=== PATIENT | female | born 1960 | race Caucasian/White ===

== ENCOUNTER 2022-07-27 17:23 | Observation (INO) | payer MEDICAID, SELFPAY ==
--- NOTE | 2022-07-19 11:54 | EKG12_ITS ---
Test Reason : PREOP Blood Pressure : / mmHG Vent. Rate : 074 BPM Atrial Rate : 074 BPM P-R Int : 166 ms QRS Dur : 076 ms QT Int : 362 ms P-R-T Axes : 049 026 031 degrees QTc Int : 401 ms Normal sinus rhythm Normal ECG Confirmed by HENRIQUE CARLISLE, RONI ([id number]), assistant editor EMORY MARSH ([id number]) on 07/20/2022 2:14:52 PM Referred By: Anil Gan Confirmed By:RONI DUENAS MD
[2022-07-19 11:56] LABS: Hematocrit 44.6 % (37-47); Hemoglobin 14.8 g/dL (12.0-15.0); Mean Corp Hgb Conc 33.2 g/dL (32-36); Mean Corpuscular Hgb 30.6 pg (27.0-32.0); Mean Corpuscular Volume 92.3 fL (81-99); Mean Platelet Vol. 10.6 fl (6.2-12.0); Platelet Count 200 K/mm3 (150-450); RBC Distribution Width CV 13.2 % (11.6-14.6); Red Blood Count 4.83 M/mm3 (4.2-5.4); White Blood Count 7.7 K/mm3 (4.4-11.0)
[2022-07-19 12:36] LABS: Anion Gap 5 (5-15); BUN 17 mg/dL (7-18); BUN/Creat Ratio 17.4 RATIO (10-20); Calcium,Total 9.2 mg/dL (8.5-10.1); Chloride 109 mmol/L (98-107); Creatinine, Serum 0.98 mg/dL (0.55-1.02); EST Glomerular Filtration Rate 61 mL/min (>60); Est Glom Filt Rate - Afr Amer 74 mL/min (>60); Glucose 122 mg/dL (74-106); Magnesium 2.2 mg/dL (1.6-2.6); Potassium 4.4 mmol/L (3.5-5.1); Sodium Level 140 mmol/L (136-145)
[2022-07-27] VITALS (9 sets, daily range): BP systolic 91–136; BP diastolic 34–101; PULSE 82–97; RESP 16–20; TEMP 36.3–37; O2SAT 93–100; BMI 47.7
[2022-07-27] MEDS: Lactated Ringers 1,000 ML 40 ML IV (05:05)
[2022-07-27] MEDS: Magnesium 1 GM over 15 mins IV (05:55)
[2022-07-27] MEDS: Scopolamine 1mg/72hr Patch 1 PATCH TD (06:08)
[2022-07-27] MEDS: Gabapentin 600 MG Tablet PO (06:08)
[2022-07-27] MEDS: Acetaminophen 500 MG Tablet 1000 MG PO ×2 (06:08→18:55)
[2022-07-27 06:12] LABS: Bedside Glucose 149 mg/dL (74-106)
--- NOTE | 2022-07-27 07:30 | BR_PTH ---
PATIENT: MERCEDES GREGORY LOC: MS3 U#:[id number] AGE/SX: 62/F ROOM: [facility] RE07/27/[address]: Dr. Anil Gan MD : 1960 BED: 1 DIS: 07/28/2022 SPEC #: [id number] RECD: 07/27/22 16:34 STATUS: DALE LUCIANO #: [id number] TONYA: 07/27/22 07:[address]: Anil Gan DEPT: SURGICAL PATHOLOGY RECD BY: Lisa Wen ENTERED: 07/28/22 09:09 SP TYPE: MAMOPLASTY OTHR DR: Dr. Mynor Abreu, DO Tissues: A - Right breast, NOS B - Left breast, NOS Procedures: Surgery Specimen Level IV HEADER OPERATION: ERAS, breast reduction mammoplasty PRE-OP DIAGNOSIS: Bilateral macromastia, neck pain, thoracic back pain, bilateral shoulder pain TISSUE SUBMITTED: A ? Right breast, B ? Left breast MICROSCOPIC DIAGNOSIS A. Right breast tissue, breast reduction mammoplasty: Benign breast tissue (2059 gm) with focal fibrocystic changes and focal mild chronic inflammation. B. Left breast tissue, breast reduction mammoplasty: Benign breast tissue (1965 gm). MAGALIS:tatum 07/29/2022 MICROSCOPIC DESCRIPTION Slides are reviewed. GROSS DESCRIPTION A - Received in fixative is one container labeled with the patient's name and designated right breast tissue. The specimen consists of multiple pieces of fibroadipose tissue with a few of the pieces showing rojas-white skin, weighing in aggregate 2059 gm and measuring in aggregate 30.0 x 25.0 x 10.0 cm. No skin lesion is identified. Sections reveal yellow adipose cut surfaces mixed with scant fibrous areas. No mass lesion is identified. Molding Utility Worker sections are submitted in six cassettes. Cassette 1 contains the skin piece. B - Received in fixative is one container labeled with the patient's name and designated left breast tissue. The specimen consists of multiple pieces of fibroadipose tissue with a few of the pieces showing rojas-white skin, weighing in aggregate 1965 gm and measuring in aggregate 30.0 x 28.0 x 10.0 cm. No skin lesion is identified. Sections reveal yellow adipose cut surfaces mixed with scant fibrous areas. No mass lesion is identified. Molding Utility Worker sections are submitted in six cassettes. Cassette 1 contains the skin piece. / MAGALIS:tatum 07/28/2022 TC:5 [facility]: [id number] x2
[2022-07-27] MEDS: Lactated Ringers 1,000 ML 60 ML IV (08:30)
[2022-07-27] MEDS: Lidocaine 1%/Epi 1:200 (30ml) 30 ML AMPUL (08:40)
[2022-07-27] MEDS: Cefazolin 2 GM in 0.9% Normal Saline 100 ML IV ×2 (12:37→21:00)
--- NOTE | 2022-07-27 17:11 | OP.PCM_ITS ---
Problems Associated Problem List Diagnoses (1) Macromastia: (2) Chronic neck pain: (3) Chronic thoracic back pain: (4) Shoulder pain, right: (5) Shoulder pain, left: (6) Intertrigo: (7) Family history of breast cancer: (8) Former smoker: Report of Operation Date of Procedure: 07/27/22 Pre-Operative Diagnosis: 1. Bilateral macromastia. 2. Neck pain. 3. Thoracic back pain. 4. Bilateral shoulder pain from shoulder grooving from the weight of the breasts on her bra straps. 5. Inframammary intertrigo. 6. Family history of breast cancer. 7. Former smoker. Post-Operative Diagnosis: Same. Surgery/Procedure Performed:: Bilateral breast reduction mammaplasty. Description of Surgical Findings:: 62 year old woman presents with complaints of bilateral macromastia as well as associated painful symptomatology of neck pain, thoracic back pain, bilateral shoulder pain from shoulder grooving from the weight of her breasts on her bra straps, and inframammary intertrigo for which she uses powders with minimal relief and without resolution of her symptomatology over the past 6 months. She denies any trauma to her breasts.? Denies any nipple discharge.? She has difficu lty with activities of daily living especially chores around the house because of her painful symptomatology.? Because of the weight of her breasts pushing on her chest wall, she gets winded easily when walking from the car into the house.? Her last mammogram was in November,. ? It showed the breast parenchyma is of scattered fibroglandular densities.? There are no new suspicious abnormal masses, aggressive calcifications or architectural distortion.? We received medical approval for the bilateral breast reduction mammaplasty.? It is scheduled for July 27, 2022.? Patient was informed of the risks and complications of the procedure including alternatives to surgery. These were discussed with the patient personally. Patient voices understanding and wishes to proceed. Some of the risks and complications were included in a form from the [employer]. Potential risks and complications included but not inclusive of bleeding, infection, seroma, hematoma, bruising, swelling, prolonged need for drains, loss of sensation to skin, partial or complete loss of skin flap and/or nipple, wound breakdown, need for wound care, poor scarring, poor aesthetic outcome, intra operative cardiac or neurologic events, DVT, PE, and reaction to anesthesia. IV Fluids - 3000 ml. Urine Output - 300 ml. Tissue removed from the left breast - 1852 grams. Tissue removed from the right breast - 1944 grams. I used AxioFill Placental Connective Tissue Powder, (I used 1000 mg x2, one in each breast). Catalog Number - [id number]-1000. Lot Number - [id number]. Expiration - March 30, 2027, (Left Breast). Catalog Number - [id number]-1000. Lot Number - [id number]. Expiration - November 27, 2026, (Right Breast). I used Charlee absorbable hemostat, (I used 4 vials, 2 in each breast). Reference Number - [id number]. Lot Number - [id number]. Expiration - January 24, 2027, (I used 2 vials in Left Breast and one vial in Right Breast). Reference Number - [id number]. Lot Number - [id number]. Expiration - January 24, 2027, (Right Breast). Surgeon: Anil Gan MD public services librarian: Chava Bhatia RNFA Type of Anesthesia: General Anesthesiologist: Percy Patel MD and Eveline Miller CRNA Specimen's removed: 1. Left breast tissue to Pathology. 2. Right breast tissue to Pathology. Drains: Nick x2 (one in each breast). Estimated Blood Loss (mL): 350. Fluids Replaced: 3300 ml (IV Fluids 3000 ml, Urine Output 300 ml). Description of Procedure: In the preop area, the patient was placed in the sitting position and preoperative markings were made.? The sternum midline was marked down to the umbilicus.? The inframammary folds were marked bilaterally.? The midclavicular line was then marked down to the nipple, then from the nipple to the inframammary fold.? The inframammary fold was then superimposed on the midclavicular line and I made a point 1 cm below that to be the new position of the nipple-areolar complex.? 7 cm lines were then drawn divergent from that point to encompass the nipple-areolar complex.? The distance between the divergent lines was 10 cm.? The patient was then placed in the supine position and taken to the operating room and placed under general anesthesia and her breasts were prepped and draped in usual fashion.? Ioban draping was also used.? SCDs were placed for DVT prophylaxis.? Perioperative antibiotics were given intravenously.? A Welch catheter was also placed. ? I then yoselin straight lines down from the lines drawn divergent around the nipple-areolar complex down to the inframammary fold.? The width of the pedicle is 10 cm.? I then used a 45 mm circular template for a new size of the nipple-areolar complex.? The central markings were infiltrated with Xylocaine and epinephrine.? The central skin was then deepithelialized.? I started on the left side first and then went to the right side.? I then mobilized medial and lateral breast flaps at the level of Negrita's fascia down to about 1-2 cm from the chest wall.? This was met in the midline of the breast with dissection at the level of Negrita's fascia down to about 1-2 cm from the chest wall.? Once the central breast mound pedicle was from the skin envelope, the reduction was then begun.? Most of the tissue was removed from the superior aspect of the breast and the lateral aspect of the breast.? I then sutured the leading edge of the medial and lateral breast flaps to the midline of the inframammary fold with 2-0 Vicryl suture.? The vertical incision was approximated using surgical clips.? The excess tissue from the medial and lateral breast flaps were excised and the horizontal incision was approximated using surgical clips.? The patient was then placed in a sitting position.? Using a vertical limb length of 5 cm, I yoselin the new position of the new nipple-areolar complexes on both breasts.? They were in good position on the central aspect of the breast mound.? Good symmetry was noted between the left breast and the right breast.? Good shape and contour and projection were noted and appeared clinically to be a C cup.? The patient was then placed back in the supine position and the surgical clips were removed.? The breast wounds were then irrigated with Irrisept 0.05% Chlorhexidine solution which was followed by saline irrigation.? Hemostasis was obtained using electrocautery.? The tissue removed from the left breast was 1852 grams grams.? The tissue removed from the right breast was 1944 grams.? The tissue that was removed from the breasts was sent to Pathology for analysis to rule out carcinoma. ? After hemostasis was obtained using electrocautery, I then sprayed Charlee absorbable hemostat into both breast wounds.? I used two vials for each side.? I then placed a size 15 Nick drain into each breast wound to be brought through the lateral aspect of the horizontal incision.? I then closed the breast wounds by first approximating the leading edge of the medial and lateral breast flaps to the midline of the inframammary fold with 2-0 Vicryl suture.? I then placed AxioFill placental connective tissue powder into both wounds at the level of the Tzone to help with the healing process. I used 1000 mg in each breast. ? The deep dermis and subcutaneous tissue of the vertical incision and the horizontal incisions were approximated using 3-0 Monocryl interrupted sutures.? ? The horizontal incision was then approximated using 4-0 V-Loc unidirectional barbed running subcuticular suture.? I also placed a few 4-0 Prolene vertical mattress interrupted sutures at the level of the Tzone.? The vertical incision was then closed on the skin with 4-0 Prolene interrupted sutures.? With a vertical limb length of 5 cm, I yoselin a circular incision where the nipple-areolar complex would be brought through this keyhole incision.? Incisions were made and the nipple areolar co mplex was brought through the keyhole incision.? The nipple-areolar complex was secured to the breast skin using 3-0 Monocryl interrupted sutures for deep dermis and subcutaneous tissue.? The skin was approximated using 4-0 Prolene simple interrupted sutures.? This was then covered with Histoacryl skin tissue adhesive.? I sutured the drains to the skin using 3-0 nylon pursestring suture.? At the end of the procedure, the breasts were soft with no evidence of vascular compromise.? No evidence of hematomas were noted.? The nipples were viable.? I then dressed the breasts with a Kerlix gauze and a compression surgical bra.? Then patient tolerated the procedure well and will be sent to the recovery room in satisfactory condition.? She will be admitted for surgical observation overnight stay.? She will go home tomorrow once she is tolerating oral pain medication.? I will remove the drains in a few days.? She will keep her head elevated during the initial postoperative period.? She will be maintained on a lifting restriction and keep her head elevated during the initial postoperative period.? The operative blood loss was about 350 ml.? Post-discharge, she may get a compression sports bra as well.? She will have the Welch removed in the morning.? She will be sent home on antibiotics and pain medicine.? Sutures will be removed in 1-2 weeks. Grafts/Implants Used: AxioFill placental connective tissue powder 1000mg x2, Charlee Procedure Start Time: 08:40 Procedure Stop Time: 16:25 Complications None. Admit VTE Documentation VTE Present on Admission: No VTE Mechan Device Prophylaxis: SCD's VTE Pharm Prophylaxis ordered?: Yes Addendum Addendum: Surgery Charges CPT - 73278-70 ICD-10 - N62, M54.2, M54.6, M25.511, M25.512, L30.4, Z80.3, Z87.891 17980 N62, M54.2, M54.6, M25.511, M25.512, L30.4, Z80.3, Z87.891
[2022-07-27] MEDS: Glycerin/Hypromellose/PEG400 15 ml Bottle 2 DRP EACH EYE ×2 (17:29→20:57)
[2022-07-27 18:14] LABS: Bedside Glucose 169 mg/dL (74-106)
[2022-07-27] MEDS: Enoxaparin 40 MG/0.4 ML Syringe SC (20:53)
[2022-07-27] MEDS: Docusate Sodium 100 MG Capsule PO (20:54)
[2022-07-27] MEDS: Atorvastatin Calcium 20 MG Tablet PO (20:55)
[2022-07-28] VITALS (9 sets, daily range): BP systolic 91–111; BP diastolic 50–62; PULSE 86–98; RESP 16–20; TEMP 36.7–37.3; O2SAT 87–98
[2022-07-28] MEDS: Acetaminophen 500 MG Tablet 1000 MG PO ×3 (00:51→11:02)
[2022-07-28] MEDS: Lactated Ringers 1,000 ML 60 ML IV (00:52)
[2022-07-28] MEDS: Cefazolin 2 GM in 0.9% Normal Saline 100 ML IV (05:35)
[2022-07-28 05:41] LABS: Hematocrit 30.7 % (37-47); Hemoglobin 10.1 g/dL (12.0-15.0); Mean Corp Hgb Conc 32.9 g/dL (32-36); Mean Corpuscular Hgb 31.1 pg (27.0-32.0); Mean Corpuscular Volume 94.5 fL (81-99); Mean Platelet Vol. 11.1 fl (6.2-12.0); Platelet Count 170 K/mm3 (150-450); RBC Distribution Width CV 13.5 % (11.6-14.6); RBC Distribution Width SD 46.5 fl (35.1-43.9); Red Blood Count 3.25 M/mm3 (4.2-5.4); White Blood Count 10.4 K/mm3 (4.4-11.0)
[2022-07-28 06:07] LABS: Anion Gap 7 (5-15); BUN 20 mg/dL (7-18); Calcium,Total 7.6 mg/dL (8.5-10.1); Chloride 107 mmol/L (98-107); Creatinine, Serum 0.87 mg/dL (0.55-1.02); EST Glomerular Filtration Rate 71 mL/min (>60); Est Glom Filt Rate - Afr Amer 85 mL/min (>60); Estimated Creatinine Clearance 58.64 ml/min; Glucose 125 mg/dL (74-106); Potassium 4.4 mmol/L (3.5-5.1); Prealbumin 17.2 mg/dL (20.0-40.0); Sodium Level 139 mmol/L (136-145)
[2022-07-28] MEDS: Calcium (Elemental) 500 MG Tablet PO (07:45)
[2022-07-28] MEDS: Spironolactone 25 MG Tablet PO (07:45)
[2022-07-28] MEDS: Multivitamins,Therapeutic Tablet 1 TABLET PO (07:45)
[2022-07-28] MEDS: Gabapentin 100 MG Capsule 200 MG PO ×2 (07:48→11:02)
[2022-07-28] MEDS: Ensure Surgery 237 ML LIQUID PO (07:48)
[2022-07-28] MEDS: Enoxaparin 40 MG/0.4 ML Syringe SC (10:58)
[2022-07-28] MEDS: Metoprolol Tartrate 50 MG Tablet PO (10:58)
[2022-07-28] MEDS: Docusate Sodium 100 MG Capsule PO (10:58)
[2022-07-28] MEDS: Pantoprazole Sodium 20 MG Tablet PO (10:58)
--- NOTE | 2022-07-28 11:26 | CASEMGMT ---
PITA CM into pt room to discuss dc planning. Pt states she feels that once she has education by the nurse, she will feel comfortable with her drains. Pt states her dtr is a TERMINAL OPERATOR who will be coming to her home daily to check on her. She states she lives with her who is also able to help her as needed. Pt denies having any oxygen in the home, states she has a CPAP. Pt denies any homegoing dc needs.
--- NOTE | 2022-07-28 13:35 | PCM.DC ---
Discharge Instructions Diet Discharge Diet: No restrictions Activity Discharge Activity: May Not Shower Lifting Restrictions: 20 lb weight lifting restriction Additional Activity Instructions:: Keep head elevated to help with swelling. Sleep with head elevated (either in a recliner or on a couple extra pillows) Dressing / Incision Call your doctor if your incision/area has: Continuous Slow Oozing, Sudden Increased Bleeding, Increased Pain/ Swelling, Increased Redness and Foul Smelling Discharge Call your doctor if you observe: Fever of 101 or Higher, Inability to urinate, Inability to have a bowel movement, Shortness of breath, Chest pain, Calf discomfort and Uncontrolled pain Change Dressing in: do not change dressing (unless it becomes saturated) Drain: Suction Additional Dressing/Incision Instructions:: Keep a log with drainage amounts and bring to your follow up appointment Follow Up Care Please Follow Up With: Anil Gan MD When: Wednesday, August 03, 2022. If you have any issues with this time please call our office at [phone] Test Results: Test results from this visit will be discussed in further detail at your follow-up appointment, if applicable. Discharge Plan Admission Admit Date/Time: 07/27/22 17:23 Attending Provider: Anil Gan Primary Care Provider: Mynor Abreu Discharge Orders/Prescriptions Prescriptions: New cefadroxil 500 mg capsule 500 mg PO BID 7 Days Qty: 14 0RF L.acidoph,saliva-B.bif-S.therm [Acidophilus Probiotic Blend] 175 mg capsule 1 cap PO DAILY 10 Days Qty: 10 0RF oxycodone-acetaminophen [Percocet] 5-325 mg tablet 1 tab PO 4X/DAY PRN PRN (Reason: pain (scale score 7-10)) 7 Days Qty: 28 0RF docusate sodium [Colace] 100 mg capsule 100 mg PO DAILY 30 Days Qty: 30 0RF Continued omeprazole 20 mg capsule,delayed release(DR/EC) 20 mg PO DAILY metoprolol tartrate 50 mg tablet 50 mg PO DAILY aspirin [Adult Aspirin Regimen] 81 mg tablet,delayed release (DR/EC) 81 mg PO DAILY multivitamin [Daily Multi-Vitamin] Tablet 1 tab PO DAILY calcium carbonate [Calcium 600] 600 mg calcium (1,500 mg) tablet 600 mg PO BID atorvastatin 20 mg tablet 20 mg PO BID spironolactone 25 mg tablet 25 mg PO DAILY diphenhydramine HCl [Benadryl Allergy] 25 mg tablet 25 mg PO Q6H PRN (Reason: ALLERGIES) diazepam [Valium] 5 mg tablet 5 mg PO QHS PRN (Reason: sleep) Qty: 3 0RF Rx Instructions: 3 tabs (three) Take the medication starting next week, 3 days prior to surgery on 07/27/22 Otezla 30 mg tablet 30 mg PO BID Other Ambulatory Orders: 12 Lead EKG (Routine) Timeframe: [id number] Location: None Selected Ordered By: Dr. Osmar Goodwin Referrals / Follow Up: Mynor Abreu DO [Primary Care Provider] - Disposition Disposition (needs filled in before D/C Order can be placed): Home, Self Care
--- NOTE | 2022-07-28 13:40 | PCM.PN.SRG ---
Subjective Subjective Postop #1 Patient sitting up in bed. Patient states pain is well controlled. She is denying any back or neck pain at this time. Objective Data Objective Data Vital Signs: Vital Signs Temp Pulse Resp BP Pulse Ox O2 Del Method O2 Flow Rate 99.1 F 98 18 109/61 98 Room Air 2 07/28/22 11:14 07/28/22 11:14 07/28/22 11:14 07/28/22 11:14 07/28/22 11:14 07/28/22 11:14 07/28/22 02:22 FiO2 95 07/28/22 08:06 Oxygen Flow Rate (L/min) 2 Oxygen Delivery Method Room Air Weight: 278 lb 3.2 oz Body Mass Index (BMI) 47.7 Intake & Output: Intake and Output for Last 24 Hours 07/26/22 07/27/22 07/28/22 23:59 23:59 23:59 Intake Total 3437 / 5437 5476 / 5476 Output Total 685 / 1055 2520 / 2520 Balance 2752 / 4382 2956 / 2956 Nick drain #1 - 95 ml , #2 - 150 ml Lab / Micro Data Result Diagrams: 07/28/22 05:25 07/28/22 05:25 Labs: Laboratory Results - last 24 hr 07/27/22 17:53: POC Glucose 169 H 07/28/22 05:25: WBC 10.4, RBC 3.25 L, Hgb 10.1 L, Hct 30.7 L, MCV 94.5, MCH 31.1, MCHC 32.9, RDW Std Deviation 46.5 H, RDW Coeff of Conner 13.5, Plt Count 170, MPV 11.1 07/28/22 05:25: Sodium 139, Potassium 4.4, Chloride 107, Carbon Dioxide 25.0, Anion Gap 7, BUN 20 H, Creatinine 0.87, Estim Creat Clear Calc 58.64, Est GFR (MDRD) Af Amer 85, Est GFR (MDRD) Non-Af 71, BUN/Creatinine Ratio 23.0 H, Glucose 125 H, Calcium 7.6 L, Prealbumin 17.2 L Physical Exam Const alert and oriented x3 General Appearance: cooperative HEENT normocephalic Resp normal respiratory effort Effort and Inspection: able to speak in complete sentences Skin Skin Narrative: Operative dressing removed. Incision and sutures are dry and intact. She has some bruising present on her left breast. Nipples are viable. Nick drains in place draining serosanguineous drainage. Neuro oriented x3 Psych mental status grossly normal and thought process normal Assessment & Plan Assessment/Plan (1) Macromastia: (2) Chronic neck pain: (3) Chronic thoracic back pain: (4) Shoulder pain, right: (5) Shoulder pain, left: (6) Intertrigo: (7) Other acute postprocedural pain: (8) Former smoker: PLAN: Plan Patient is doing well. She states she is having minimal pain. Operative dressing removed, incisions are dry and intact. Nipples are viable. Nick drains draining serosanguineous drainage. #1 had 95 ml, #2 had 150 ml drainage. She will measure and keep track of drainage from her Nick tubes and bring it to her appointment next week. Hgb 10.1, K+ 4.4. Prealbumin 17.2. Encourage increase in protein intake to help with wound healing. Instructed to keep head elevated to help reduce swelling. She has a 20 lb weight lifting restriction. She only needs to change the dressing if she is having a lot of drainage. She is to take the Cefadroxil until the drains are removed. Percocet 5 mg prescribed 4 x/day as needed for pain (28 tabs). PDMP reviewed. She is to follow up next Monday, August 02, 2022 for her follow up appointment. Will plan on removing her drains at that time.
== END 2022-07-28 15:40 | disposition home or self-care (01) ==
LOC: SDC 18:06 → MS3 18:06
PROVIDERS: Anesthesiology; Admitting Provider Surgery; Referring Provider Surgery; Visit Provider Surgery
PROC: 0H0U0ZZ Alteration of Left Breast, Open Approach (ICD-10-PCS; CPT 19318; principal; 2022-07-27 07:15)
DX: N62 Hypertrophy of breast (principal); Z79.899 Other long term (current) drug therapy; Z79.82 Long term (current) use of aspirin; M19.90 Unspecified osteoarthritis, unspecified site; K21.9 Gastro-esophageal reflux disease without esophagitis; I10 Essential (primary) hypertension; E78.00 Pure hypercholesterolemia, unspecified; Z87.891 Personal history of nicotine dependence; M54.2 Cervicalgia; M25.511 Pain in right shoulder; M25.512 Pain in left shoulder; M54.6 Pain in thoracic spine; L30.4 Erythema intertrigo; Z80.3 Family history of malignant neoplasm of breast
CPT/HCPCS: 19318; 00402; Q9968; 36415; 80048; 82962; 83735; 84134; 85027; 88305; 93005; 94668; 94762; 96365; 96366; 96372; 99221; 99252; J7120; G0378; G0463; J2405; J3475

== ENCOUNTER → 2022-09-01 | Outpatient (CLI) | payer MEDICAID, SELFPAY | END | disposition home or self-care (01) | LOC: LABSPEC 12:06 | PROVIDERS: Referring Provider Nurse Practitioner Family; Visit Provider Nurse Practitioner Family | DX: T81.89XA Other complications of procedures, not elsewhere classified, initial encounter (principal) | CPT/HCPCS: 87070; 87075; 87186; 87205 ==

== ENCOUNTER → 2022-11-03 | Outpatient (CLI) | payer MEDICAID, SELFPAY | END | disposition home or self-care (01) | LOC: LABSPEC 10:34 | PROVIDERS: Referring Provider Nurse Practitioner Family; Visit Provider Nurse Practitioner Family | DX: L98.499 Non-pressure chronic ulcer of skin of other sites with unspecified severity (principal); Z80.3 Family history of malignant neoplasm of breast; Z87.891 Personal history of nicotine dependence; Z98.890 Other specified postprocedural states | CPT/HCPCS: 87070; 87075; 87205 ==

== ENCOUNTER 2023-07-26 07:22 | Day surgery (SDC) | payer MEDICAID, SELFPAY ==
[2023-07-26] VITALS (12 sets, daily range): BP systolic 101–117; BP diastolic 63–79; PULSE 64–70; RESP 16–18; TEMP 36–36.6; O2SAT 94–99; BMI 43.7
[2023-07-26 08:17] LABS: Magnesium 1.9 mg/dL (1.6-2.6)
[2023-07-26] MEDS: Lactated Ringers 1,000 ML 40 ML IV (08:22)
[2023-07-26] MEDS: Gabapentin 600 MG Tablet PO (08:27)
[2023-07-26] MEDS: Acetaminophen 500 MG Tablet 1000 MG PO (08:27)
[2023-07-26] MEDS: Scopolamine 1mg/72hr Patch 1 PATCH TD (08:28)
--- NOTE | 2023-07-26 08:37 | PRE.ANES_ITS ---
[facility] Medical History History of pain when walking History of edema Pain of right breast Mass of right breast Methicillin resistant Staphylococcus epidermidis infection Nonhealing surgical wound Wears glasses Rash Arthritis High cholesterol Gastric reflux Former smoker Shortness of breath on exertion CPAP (continuous positive airway pressure) dependence Leg cramps History of stress test Cardiology follow-up encounter Family history of breast cancer Intertrigo Shoulder pain, left Shoulder pain, right Chronic thoracic back pain Chronic neck pain Macromastia High blood pressure Home Medications ?Medication ?Instructions ?Recorded ?Last Taken ?Type aspirin 81 mg tablet,delayed 81 mg PO DAILY 01/01/21 07/25/23 History release (Adult Aspirin Regimen) atorvastatin 20 mg tablet 20 mg PO QHS 01/01/21 07/25/23 History calcium carbonate (Calcium 600) 600 mg PO BID 01/01/21 07/25/23 History diphenhydramine HCl 25 mg tablet 25 mg PO Q6H PRN ALLERGIES 01/01/21 07/25/23 History (Benadryl Allergy) metoprolol tartrate 50 mg tablet 50 mg PO DAILY 01/01/21 07/27/22 03:00 History multivitamin (Daily Multi-Vitamin 1 tab PO DAILY 01/01/21 07/26/23 History tablet) omeprazole 20 mg capsule,delayed 20 mg PO DAILY 01/01/21 07/26/23 History release spironolactone 25 mg tablet 25 mg PO DAILY PRN PRN edema 01/01/21 07/25/23 History apremilast 30 mg tablet (Otezla) 30 mg PO BID 07/15/22 07/26/23 History hydroxyzine HCl 25 mg tablet 25 mg PO QHS 11/24/22 07/25/23 History Allergy/AdvReac Type Severity Reaction Status Date / Time No Known Allergies Allergy Verified 07/26/23 08:13 Family History Mother Hypertension Father Hypertension Lung cancer Surgical History History of bilateral breast reduction surgery History of cardiac catheterization History of surgery History of knee surgery History of carpal tunnel release History of tubal ligation Social History Smoking Status: Former smoker alcohol intake: never substance use type: does not use additional social history: Does Take Aspirin Daily Does Not Take Ibuprofen Pre-Assessment* Diagnosis/Proposed Procedure Planned Operative Procedure/s: excison rt breast mass, skin flap Anesthesia History Anesthesia History - autocad detailer: Anesthesia History - autocad detailer Hx Hospitalization No 07/12/23 11:13 Any Problems With Anesthesia No 07/12/23 11:13 Cholinesterase deficiency No 07/12/23 11:13 You/Your Family Experience No 07/12/23 11:13 fever (hyperthermia) with Relationship Recent Exposure to Contagious No 07/26/23 08:14 Disease Does patient have nerve No 07/12/23 11:13 stimulator Patient instructed to have device shut off --Does patient have Pacemaker No 07/26/23 08:14 or ICD? When Was Last Pacemaker Check Airway/Respiratory Assessment Mouth opens (cm): 2 Mallampati Score: II Respiratory Assessment - autocad detailer: Respiratory Tract Infection Hx - autocad detailer Hx Respiratory Tract Infection No 07/12/23 11:13 STOP Sleep Apnea STOP Sleep Apnea - autocad detailer: STOP Sleep Apnea - autocad detailer Hx Hypertension Yes: CONTROLLED WITH MED 07/12/23 11:13 Hx Sleep Apnea Yes 07/12/23 11:13 CPAP Yes 07/12/23 11:13 BIPAP No 07/12/23 11:13 Do you snore loudly (louder than talking or can be heard Do you often feel tired/ fatigued/ sleepy during daytime? Has anyone observed you stop breathing during sleep? STOP Results Positive 07/12/23 11:13 Tobacco Use History Tobacco Use History - autocad detailer: Tobacco Use Histor - autocad detailer Tobacco Use Smoking Status Former smoker 07/12/23 11:13 Hx Tobacco Use No 07/12/23 11:13 Years Smoking Packs Smoked per Day Smoking Cessation Date was No - quit smoking greater 07/12/23 11:13 within the last 15 years than 15 years ago Hx Smoking Cessation Date Hx Smoking Cessation No 07/12/23 11:13 Counseling /Reproduction History /Reproductive History - autocad detailer: /Reproductive Hx- autocad detailer Hx Now No 07/12/23 11:13 Gestational Age (in weeks): EDC: Hx Hx Para Hx Section SAB No 07/12/23 11:13 Hematologic Medial History Hematologic Hx - autocad detailer: Hematolgic Medical Hx - machine package sealer Hx of Blood Transfusion No 07/12/23 11:13 Hx of Transfusion in last 3 No 07/12/23 11:13 Months Date of Last Transfusion (if within last 3 months) Ever experience any problems No 07/12/23 11:13 with transfusion(s)? Specify any problems Hx of Preganancy in last 3 No 07/12/23 11:13 Months Nurse Filling Out Transfusion DSCHRIBER 07/12/23 11:13 & Questions: Date: 07/12/23 07/12/23 11:13 Time: 11:16 07/12/23 11:13 Patient unable to answer at this time (ie. confused, unrespo PONV PONV - autocad detailer: PONV - autocad detailer Female Yes 07/12/23 11:13 HX of Motion Sickness No 07/12/23 11:13 HX of N/V After Surgery No 07/12/23 11:13 Non-Smoker Yes 07/12/23 11:13 Duration of Surgery greater Yes 07/12/23 11:13 than 60 minutes Number of Risk Factors 3 07/12/23 11:13 PONV Score Moderate Risk 07/12/23 11:13 Any additional information?: No ASA Classification ASA Classification: 3 Pertinent Findings EKG Pertinent Findings:: nl Assessment & Plan Anesthesia* Anesthesia Assessment Anesthesia Assessment: Discussed sedation and/or anesthesia options, risks, benefits, and alternatives with patient/parents/legal guardian. Questions invited. The patient/parents/legal guardian/POA seems to understand and agrees to proceed with anesthesia plan. Reviewed the physical assessment, medical history, allergy history and patient home medications list prior to surgery/procedure/anesthetic and documented any changes. Performed airway and anesthesia risk assessments. Procedural Plan (POC = Plan of care) Procedural Plan:: Proceed w/ POC Anesthesia focused assessment* Height & Weight: Anesthesia: Height & Weight Height 1.63 m 07/26/23 08:14 Weight: 115.6 kg 07/26/23 08:14 Body Mass Index (BMI) 43.7 07/26/23 08:14 Temperature: 96.8 F Pulse Rate: 69 Blood Pressure: 110/68 Respiratory Rate: 18 Pulse Ox: 98 Active Medications: Current Medications Generic Name Dose Route Start Last Admin Trade Name Freq PRN Reason Stop Dose Admin Acetaminophen 1,000 mg 07/26/23 09:25 07/26/23 08:27 Acetaminophen 500 Mg Tablet PO 07/26/23 09:26 1,000 mg X1 ONE Administration Gabapentin 600 mg 07/26/23 09:25 07/26/23 08:27 Gabapentin 600 Mg Tablet PO 07/26/23 09:26 600 mg X1 ONE Administration Lactated Ringer's 1,000 mls @ 40 mls/hr 07/26/23 09:25 07/26/23 08:22 IV 40 mls/hr .Q25H DEVYN Administration Cefazolin Sodium 2 gm/ Sodium 110 mls @ 150 mls/hr 07/26/23 09:25 Chloride IV 07/26/23 10:08 PREOP ONE Lactated Ringer's 1,000 mls @ 60 mls/hr 07/26/23 10:25 IV .[id number] DEVYN Magnesium Sulfate 2 gm/ 104 mls @ 208 mls/hr 07/26/23 08:35 Dextrose IV 07/26/23 09:04 X1 ONE Insulin Human Lispro 1 - 6 unit 07/26/23 09:25 Insulin Lispro 100 Unit/Ml Insuln.Pen SC 07/26/23 15:25 Q4H PRN PRN BG>/= 180, SEE PROTOCOL Protocol Scopolamine HBr 1 patch 07/26/23 09:25 07/26/23 08:28 Scopolamine 1mg/72hr Patch TD 07/26/23 09:26 1 patch X1 ONE Administration Review of Systems (Anesthesia) ROS Narrative System reviewed and no additional complaints, except as documented. Focused labs Anesthesia Preop lab: CBC WBC 10.4 K/mm3 (4.4-11.0) 07/28/22 05:25 RBC 3.25 M/mm3 (4.2-5.4) L 07/28/22 05:25 Hgb 10.1 g/dL (12.0-15.0) L 07/28/22 05:25 Hct 30.7 % (37-47) L 07/28/22 05:25 Plt Count 170 K/mm3 (150-450) 07/28/22 05:25 CHEMISTRY Potassium 4.4 mmol/L (3.5-5.1) 07/28/22 05:25 Sodium 139 mmol/L (136-145) 07/28/22 05:25 Magnesium 1.9 mg/dL (1.6-2.6) 07/26/23 08:05 BUN 20 mg/dL (7-18) H 07/28/22 05:25 Creatinine 0.87 mg/dL (0.55-1.02) 07/28/22 05:25 Glucose 125 mg/dL (74-106) H 07/28/22 05:25 COAG
[2023-07-26] MEDS: Mupirocin Ointment 22gm Tube 1 APPLIC (08:49)
[2023-07-26] MEDS: Magnesium 2 GM for ERAS IV (08:57)
--- NOTE | 2023-07-26 09:30 | BREAST_PTH ---
PATIENT: MERCEDES GREGORY LOC: [facility] U#:[id number] AGE/SX: 63/F ROOM: RE07/26/[address]: Dr. Anil Gan MD : 1960 BED: DIS: 07/26/2023 SPEC #: [id number] RECD: 07/26/23 12:26 STATUS: DALE MUSTAPHA #: [id number] TONYA: 07/26/23 09:[address]: Anil Gan DEPT: SURGICAL PATHOLOGY RECD BY: Jitendra Samayoa ENTERED: 07/26/23 13:45 SP TYPE: BREAST OTHR DR: Dr. Mynor Abreu, DO Tissues: Right breast, NOS Procedures: Surgery Specimen Level IV HEADER OPERATION: ERAS, excision right breast mass, excision infected scar ulcer PRE-OP DIAGNOSIS: 1.0cm painful mass right breast at the T zone, fat necrosis, history of breast reduction surgery, family history of breast cancer, history of MRSE, former smoker TISSUE SUBMITTED: Right breast mass at T-zone MICROSCOPIC DIAGNOSIS Right breast mass at T-zone, excision: Nodular fat necrosis with associated reactive change and mild chronic inflammation. Skin with no pathologic change. No evidence of malignancy. / 07/31/2023 MICROSCOPIC DESCRIPTION Slides are reviewed. GROSS DESCRIPTION Received in fixative is one container labeled with the patient's name and designated Right breast mass. The specimen consists of multiple fragments of rojas-yellow fibrofatty tissue ranging in size from 0.5 to 7.0cm. The larger fragments contains unremarkable ellipses of skin. Serial sections reveal a chalky yellow nodule measuring 1.0cm in greatest dimension. The remainder of the cut surfaces are yellow and fatty. The skin fragments do not contain mass lesions. The nodule is totally submitted in cassette #1. Audio/Video Engineer sections of the remainder of the tissue are submitted in cassettes 2-6. NOTE: Sections are submitted after additional fixation. Ischemic Time: 1 minute Fixation Time: 10 hours AM/mr 07/27/2023 TC:5 CPT:90661
[2023-07-26 09:55] LABS: Bedside Glucose 133 mg/dL (74-106)
[2023-07-26] MEDS: Cefazolin 2 GM in 0.9% Normal Saline (100mL Bag) 100 ML IV (10:03)
[2023-07-26] MEDS: Lidocaine 1% /Epi 1:100 (50ml) 50 ML VIAL (10:26)
--- NOTE | 2023-07-26 12:05 | PCM.POST.ANE ---
Anesthesia: Postop Eval I Current Vital Signs Temperature: 97.9 F Pulse Rate: 67 Blood Pressure: 117/73 Respiratory Rate: 16 Pulse Ox: 95 Oxygen Delivery Method: Room Air Assessment Airway patent: Yes Spontaneous unlabored respirations: Yes Mental status: Awake nausea: No Vomiting: No Fluid Hydration Crystalloid volume administer (ml): 1,200 Total IV fluid infused: 1,200 Progress Note Anesthesia document: Postop Eval 1 completed: Yes
--- NOTE | 2023-07-26 12:36 | DCINST_ITS ---
Discharge Instructions Diet Discharge Diet: No restrictions and - (encourage nutritional supplementation with protein to help the healing process.) Activity Discharge Activity: May Drive (when not taking pain medication.), May Not Shower (until drain is removed.) and - (keep head elevated. no heavy lifting.) May shower in (days): 7 (after her drain is removed.) May resume sexual activity in: 10-14 days Weight Bearing Status: Weight bearing as tolerated Lifting Restrictions: 20 lbs. Keep extremity elevated above heart level: - (elevate head.) Dressing / Incision Call your doctor if your incision/area has: Continuous Slow Oozing, Sudden Increased Bleeding, Increased Pain/ Swelling, Increased Redness, Foul Smelling Discharge and Swelling at the incision site Call your doctor if you observe: Fever of 101 or Higher, Coldness, Increased Pain, Shortness of breath, Chest pain, Calf discomfort and Uncontrolled pain Change Dressing in: 2 days (dry dressings after that daily or every other day.) Cleanse incision/area with: Keep Dressing Clean & Dry (until drain is removed in the office.) Drain: Suction (álvaro drain to bulb suction. empty and record output daily.) Follow Up Care Please Follow Up With: Anil Gan MD When: one week. call [phone] for appt. Test Results: Test results from this visit will be discussed in further detail at your follow- up appointment, if applicable. Discharge Plan Admission Primary Reason for Your Visit: excision right breast mass at [facility] Attending Provider: Anil Gan Primary Care Provider: Mynor Abreu Instructions Print Language: Hong Konger Discharge Orders/Prescriptions Prescriptions: New L.acidparamjit,saliva-B.bif-S.therm [Acidophilus Probiotic Blend] 175 mg capsule 1 cap PO DAILY Qty: 30 0RF oxycodone-acetaminophen [Percocet] 5-325 mg tablet 1 tab PO Q6H PRN (Reason: pain (scale score 7-10)) 7 Days Qty: 28 0RF Rx Instructions: 28 tabs (twenty-eight) doxycycline hyclate 100 mg capsule 100 mg PO BID Qty: 28 2RF Continued omeprazole 20 mg capsule,delayed release(DR/EC) 20 mg PO DAILY metoprolol tartrate 50 mg tablet 50 mg PO DAILY aspirin [Adult Aspirin Regimen] 81 mg tablet,delayed release (DR/EC) 81 mg PO DAILY multivitamin [Daily Multi-Vitamin] Tablet 1 tab PO DAILY calcium carbonate [Calcium 600] 600 mg calcium (1,500 mg) tablet 600 mg PO BID atorvastatin 20 mg tablet 20 mg PO QHS spironolactone 25 mg tablet 25 mg PO DAILY PRN PRN (Reason: edema) diphenhydramine HCl [Benadryl Allergy] 25 mg tablet 25 mg PO Q6H PRN (Reason: ALLERGIES) hydroxyzine HCl 25 mg tablet 25 mg PO QHS Otezla 30 mg tablet 30 mg PO BID Referrals / Follow Up: Mynor Abreu DO [Primary Care Provider] - Anil Gan MD [Med Staff - Active Staff] - Disposition Disposition (needs filled in before D/C Order can be placed): Home, Self Care
--- NOTE | 2023-07-26 12:36 | PCM.OPRPT ---
Problems Associated Problem List Diagnoses (1) Pain of right breast: (2) Mass of right breast: (3) Fat necrosis of breast: (4) History of bilateral breast reduction surgery: (5) Family history of breast cancer: (6) Methicillin resistant Staphylococcus epidermidis infection: (7) Former smoker: Report of Operation Date of Procedure: 07/26/23 Pre-Operative Diagnosis: 1. 1 cm painful mass right breast at Tzone. 2. Fat necrosis. 3. History of bilateral breast reduction mammaplasty. 4. Family history of breast cancer. 5. History of MRSE. 6. Former smoker. Post-Operative Diagnosis: Same. Surgery/Procedure Performed:: Excision 1 cm painful mass right breast at Tzone, clinically fat necrosis. Description of Surgical Findings:: 63 year old woman had bilateral macromastia and went to surgery on 07/27/22 where she underwent bilateral breast reduction mammaplasty. Tissue removed from the left breast was 1852 grams.? Tissue removed from the right breast was 1944 grams.?? Her symptomatology improved almost immediately after the breast reduction surgery. She is now able to be more active with out fatigue, since her surgery. ? During the postoperative period, she developed a nonhealing ulcer right breast at the Tzone area that has since healed. There is a persistent mass at the Tzone. She had a mammogram done on 05/05/23 at [facility]. It showed the breast parenchyma is heterogenously dense which may obscure small masses. There are no new suspicious abnormal masses, aggressive calcifications or architectural distortion. An ultrasound was also done that day. It showed at the 7 om.clock position of the right breast 5 cm from the nipple there is an oblong solid well-circumscribed mass which measures 1 x 1.5 cm consistent with scarring or possible malignancy. The left breast there are 2 small echo-free areas at the 1 oclock position 5 cm from the nipple measuring approximately 3 x 4 mm. Ultrasound-guided aspiration biopsy of the right breast is recommended. Patient was informed of the risks and complications of the procedure including alternatives to surgery. These were discussed with the patient personally. Patient voices understanding and wishes to proceed. Some of the risks and complications were included in a form from the [employer]. Potential risks and complications included but not inclusive of bleeding, infection, seroma, hematoma, bruising, swelling, prolonged need for drains, loss of sensation to skin, partial or complete loss of skin flap and/or nipple, wound breakdown, need for wound care, poor scarring, poor aesthetic outcome, intra operative cardiac or neurologic events, DVT, PE, and reaction to anesthesia. I used Charlee absorbable hemostat. Reference Number - [id number]. Device Identifier Number - [id number]. Lot Number - [id number]. Expiration - July 25, 2027. Surgeon: Anil Gan MD sales consultant insurance: None Type of Anesthesia: General Anesthesiologist: Percy Patel MD and Erick Choe CRNA Specimen's removed: Painful right breast mass at Tzone to Pathology and Microbiology. Drains: Nick. Estimated Blood Loss (mL): 20. Description of Procedure: Patient was taken to OR in supine position and was placed under general anesthesia. The right breast mass at the Tzone was marked in the preop area. The right breast was prepped and draped in the usual fashion. SCD's were placed for DVT prophylaxis. Perioperative antibiotics were given intravenously. Using xylocaine with epinephrine, the right breast mass was infiltrated. After waiting 5 minutes for the anesthetic to take effect, I made an incision through the horizontal scar and removed the widened scar. Dissection was carried down at the Tzone area to the chest wall where the mass was palpable. I had exposure of the mass that I didn't have to make an incision through the vertical scar up toward the nipple area. The mass was sharply excised. Clinically it was fat necrosis. The mass was sent to Pathology for analysis to rule out carcinoma. A small sample was sent to Microbiology for culture. A positive culture will necessitate antibiotic therapy. Hemostasis was obtained with electrocautery. I irrigated the breast wound with Irrisept 0.05% Chlorhexidine and followed that with saline irrigation. I sprayed Charlee absorbable hemostat into the wound to minimize seroma formation. Due to the large size of the wound, I placed a size 15 Nick drain through a separate stab incision at lateral aspect of horizontal wound and secured it to skin with 3-0 Nylon purse string suture. This wound was then closed in a multi-layered fashion with 3-0 Monocryl interrupted sutures for the deep dermis and subcutaneous tissue. The skin was approximated with 4-0 Prolene simple interrupted and vertical mattress interrupted sutures. Antibiotic ointment was applied to the suture line. There was no clinical evidence of hematoma after wound closure. Kerlix gauze was used for the dressing followed a compression troy wrap. The compression troy wrap will be applied prior to discharge in the child care leader area. Patient tolerated the procedure well and was sent to PACU in satisfactory condition. Patient will be sent home on antibiotics and pain medication. Patient will followup in a week for a wound check and for discussion of the pathology report and for discussion of the microbiology report. A positive culture will necessitate antibiotic therapy. The drain will be removed in 1-2 weeks. I will remove the sutures in two weeks. Grafts/Implants Used: Charlee Procedure Start Time: 10:24 Procedure Stop Time: 11:54 Complications None. Admit VTE Documentation VTE Present on Admission: No VTE Mechan Device Prophylaxis: SCD's VTE Pharm Prophylaxis ordered?: No Addendum Addendum: Surgery Charges CPT - 38177 ICD-10 - N63.10, N64.4, N64.1, Z98.890, Z80.3, A49.8, Z87.891
--- NOTE | 2023-07-26 13:14 | POSTOPAN2_ITS ---
Anesthesia Postop Eval I Sum Postop Eval Completion status Anesthesia document: Postop Eval 1 completed: Yes Anesthesia Postop Eval I Summary Anesthesia Postop Eval I Summary: Anesthesia Postop Eval I: Assessment Summary Airway patent Yes 07/26/23 12:56 [email or web address] Spontaneous unlabored Yes 07/26/23 12:56 MANAGER [email or web address] respirations Mental status Awake 07/26/23 12:56 MANAGER [email or web address] nausea No 07/26/23 12:56 MANAGER [email or web address] Vomiting No 07/26/23 12:56 MANAGER [email or web address] Anesthesia Postop Eval I: Fluid Summary Crystalloid volume administer 1,200 07/26/23 12:56 MANAGER [email or web address] (ml) Colloids volume administered ( ml) Blood Product volume administered (ml) Total IV fluid infused 1,200 07/26/23 12:56 MANAGER [email or web address] Anesthesia Postop Eval I: Summary Notes Anesthesia Complication Anesthesia Complication Comment: Post-operative progress note Anesthesia: Postop Eval II Evaluation Mental status: Awake Pain Level: 0 nausea: No Vomiting: No
--- NOTE | 2023-07-26 13:14 | PCM.POSTANE2 ---
Anesthesia Postop Eval I Sum Postop Eval Completion status Anesthesia document: Postop Eval 1 completed: Yes Anesthesia Postop Eval I Summary Anesthesia Postop Eval I Summary: Anesthesia Postop Eval I: Assessment Summary Airway patent Yes 07/26/23 12:56 OCEAN [email or web address] [email or web address] Spontaneous unlabored Yes 07/26/23 12:56 OCEAN [email or web address] [email or web address] respirations Mental status Awake 07/26/23 12:56 OCEAN [email or web address] nausea No 07/26/23 12:56 OCEAN EXPORT [email or web address].[email or web address] Vomiting No 07/26/23 12:56 OCEAN EXPORT [email or web address] Anesthesia Postop Eval I: Fluid Summary Crystalloid volume administer 1,200 07/26/23 12:56 OCEAN [email or web address] (ml) Colloids volume administered ( ml) Blood Product volume administered (ml) Total IV fluid infused 1,200 07/26/23 12:56 OCEAN EXPORT AGENT.[email or web address] Anesthesia Postop Eval I: Summary Notes Anesthesia Complication Anesthesia Complication Comment: Post-operative progress note Anesthesia: Postop Eval II Evaluation Mental status: Awake Pain Level: 0 nausea: No Vomiting: No
== END 2023-07-26 14:06 | disposition home or self-care (01) ==
LOC: SDC 07:22 → AC 08:49
PROVIDERS: Anesthesiology; Referring Provider Surgery; Visit Provider Surgery
PROC: (CPT 19120; principal; 2023-07-26 09:20)
DX: N63.10 Unspecified lump in the right breast, unspecified quadrant (principal); N64.1 Fat necrosis of breast; N64.4 Mastodynia; I10 Essential (primary) hypertension; E78.00 Pure hypercholesterolemia, unspecified; G47.30 Sleep apnea, unspecified; A49.8 Other bacterial infections of unspecified site; Z87.891 Personal history of nicotine dependence; Z79.82 Long term (current) use of aspirin; Z79.899 Other long term (current) drug therapy; Z80.3 Family history of malignant neoplasm of breast
CPT/HCPCS: 19120; 82962; 83735; 87070; 87075; 87102; 87176; 87205; 87206; 88305; J2405